=== PATIENT | female | born 1955 | race Caucasian/White ===

== ENCOUNTER → 2024-09-26 | Outpatient (CLI) | payer MEDICARE ==
[2024-09-26 18:29] LABS: Basophils # (A) 0.07 X 10*3/uL (0.00-0.10); Basophils % (A) 0.8 %; Eosinophils # (A) 0.09 X 10*3/uL (0.04-0.35); Eosinophils % (A) 1.1 %; HCT 44.5 % (37.2-46.3); HGB 14.5 g/dL (12.0-15.0); Lymphocytes % (A) 29.8 %; MCH 29.7 pg (27.0-32.0); MCHC 32.6 g/dL (32.0-37.0); MCV 91.2 FL (80.0-97.0); Mean Platelet Volume 9.3 FL (9.5-12.2); Monocytes # (A) 0.99 X 10*3/uL (0.20-1.00); Monocytes % (A) 11.8 %; NRBC Per 100 WBC 0 X 10*3/uL (0.00-0.01); Neutrophils # (A) 4.73 X 10*3/uL (1.80-7.70); Neutrophils % (A) 56.3 %; Platelet Count 357 X 10*3/uL (140-440); RBC 4.88 X 10*6/uL (4.10-5.20); RDW 13.4 % (11.5-14.5)
[2024-09-26 18:40] LABS: Calcium 11.3 mg/dL (8.7-10.3); Carbon Dioxide 23.1 mmol/L (21.6-31.8); Chloride 104 mmol/L (96-109); Glucose 94 mg/dL (70-110); Potassium 4.5 mmol/L (3.5-5.5); Sodium 136 mmol/L (135-145)
[2024-09-26 18:51] LABS: Appearance,Urine Cloudy (Clear); Bilirubin,Urine Negative (Negative); Blood,Urine Trace (Negative); Color,Urine Yellow (Yellow); Ketones,Urine Trace (Negative); Nitrite,Urine Negative (Negative); PH, Urine 5.5; Specific Gravity,Urine 1.022 (1.001-1.030); Urobilinogen,Urine 0.2 E.U./DL
[2024-09-26 19:20] LABS: Bacteria,Urine 2+ (None Seen); Calcium Oxalate Crystals,Urine Present (None Seen)
== END | disposition home or self-care (01) ==
LOC: LABPAT 14:18
PROVIDERS: ATTEND Urology
DX: Z01.812 Encounter for preprocedural laboratory examination (principal); N20.1 Calculus of ureter
CPT/HCPCS: 80048; 81001; 85025; 87086

== ENCOUNTER 2024-10-04 07:18 | Day surgery (SDC) | payer MEDICARE ==
--- NOTE | 2024-09-29 12:12 | P.HPIHPCON ---
History of Present Illness H&P Date: 09/29/24 Chief Complaint: Right ureteral stone This is a 69-year-old female with history of 8 mm right-sided UPJ stone. Option of right-sided ESWL versus ureteroscopy with holmium laser was discussed. She agreed to proceed with a right-sided ureteroscopy with holmium laser. She is aware of the risk which include but not limited to bleeding, infection, injury to the ureter Consent for Procedure: I have explained the operation/procedure to the patient, including the risks, benefits, side effects, alternative therapies (including not receiving the proposed treatment or service), the likelihood of the patient achieving his/her goals, and potential recuperation problems for the procedure/sedation/analgesia, as well as any blood products, if indicated. I also explained to the patient the risks, benefits and side effects of the alternatives, as well as the risks related to not receiving the proposed procedure, care, treatment, or services. Surgical - Exam - General no distress, no pain - Eyes normal ocular movement, no pale - ENT normal nares, normal mucosa - Respiratory normal expansion, normal respiratory effort - Abdomen Abdomen: soft, non tender Assessment and Plan Assessment: OR for right-sided ureteroscopy, millimeter lithotripsy, stone basketing and stent insertion
[~2024-10-04 07:18] MED LIST: HYDROmorphone 0.5 MG/0.5 ML SYRINGE IVP PRN; LACTATED RINGERS 1,000 ML IV SCH; LIDOCAINE 1% (10MG/ML) FOR IV START INTRADERMA PRN; MIDAZOLAM 2 MG/2 ML VIAL IV PRN; fentaNYL (PF) 50 MCG/ML 2 ML AMP IVP PRN
--- NOTE | 2024-10-04 07:42 | XR ---
EXAMINATION TYPE: XR KUB DATE OF EXAM: 10/04/2024 7:35 AM COMPARISON: CT 09/07/2024 CLINICAL INDICATION: Female, 69 years old with history of Ureteral Stone N20.1; PHH, pain TECHNIQUE: One radiographic view of the abdomen was obtained. FINDINGS: Moderate stool burden. Pelvic phleboliths. 1.2 cm calcification right paramedian mid to low er abdomen. Faint 6 mm calcification right mid abdomen. IMPRESSION: 1. Suspect persisting 1.2 cm right mid ureteral stone. 2. There may be faint underlying 6 mm right renal stone. [facility], Workstation: [facility], 10/04/2024 7:40 AM
[2024-10-04] MEDS: IV FLUID CONTINUATION 1,000 ML IV ONE (08:10)
[2024-10-04] MEDS: ONDANSETRON 4 MG/2 ML VIAL IVP ONE (08:14)
[2024-10-04] MEDS: DEXAMETHASONE SOD PHOSPHATE 4 MG/ML 1 ML VIAL IV ONE (08:14)
[2024-10-04] MEDS ORDERED: LIDOCAINE 1% INJ 10MG/ML (20 ML MDV) ONE (09:16)
[2024-10-04] MEDS ORDERED: fentaNYL (PF) 50 MCG/ML 2 ML AMP ONE (09:16)
[2024-10-04] MEDS ORDERED: PROPOFOL 10 MG/ML 20 ML VIAL IV ONE (09:16)
[2024-10-04] MEDS ORDERED: diphenhydrAMINE 50 MG/ML 1 ML VIAL ONE (09:16)
[2024-10-04 10:12] VITALS: TEMP 96.8
--- NOTE | 2024-10-04 11:01 | FL ---
EXAMINATION TYPE: FL guidance operating room DATE OF EXAM: 10/04/2024 FLUOROSCOPY Cysto for RT sided stone with Rahbar 4.1 sec fluoro time [id number] DAP 1 image saved LC [facility], , 10/04/2024 10:59 AM
--- NOTE | 2024-10-04 11:10 | P.OP ---
Date of Procedure: 10/04/24 Preoperative Diagnosis: Right ureteral stone Postoperative Diagnosis: Same Procedure(s) Performed: Cystoscopy, right ureteroscopy, hemilithotripsy, stone basketing, stent insertion Implants: 6 [place] by 24 cm stent in the right ureter Anesthesia: VERÓNICA Surgeon: Alejandro Ramirez Estimated Blood Loss (ml): 5 Pathology: other (Right ureteral stone) Condition: stable Disposition: PACU Indications for Procedure: This is a 69-year-old female with history of 8 mm right-sided UPJ stone. Option of right-sided ESWL versus ureteroscopy with holmium laser was discussed. She agreed to proceed with a right-sided ureteroscopy with holmium laser. She is aware of the risk which include but not limited to bleeding, infection, injury to the ureter Operative Findings: Right sided UPJ stone Description of Procedure: Patient brought the operating room, general anesthesia was induced. She was prepped, draped in sterile fashion placed in a dorsolithotomy position. Cystoscopy fitted through the 21 [place] sheath was inserted per urethra, cystoscopy was performed which showed no abnormality within the bladder. Attention was then carried to the right ureteral orifice which was intubated with a sensor wire. The wire was advanced under fluoroscopy into the kidney. Next an 1113 [place] access sheath was passed over the wire and into the proximal ureter. The flexible ureteroscope was inserted through the access sheath, at this point a stone was encountered at the UPJ. Using the holmium laser the stone was dusted, any sizable stone fragments were removed using the stone basket. Repeat renoscopy showed no sizable fragments or injury to the ureter or the kidney. On fluoroscopy there was no radiopaque density seen. Pullback ureteroscopy was performed showed no injury to the ureter or any ureteral stones, as ureteroscope was withdrawn a sensor wire was advanced through. Next a ureteral stent was passed over the wire, the proximal curl was visualized on fluoroscopy and the distal curl was visualized using the cystoscope. The bladder was emptied at the end of the case. Patient tolerated the procedure well was taken to recovery in stable condition
[2024-10-04 11:50] VITALS: BP 99/72; PULSE 74; RESP 17
== END 2024-10-04 12:07 | disposition home or self-care (01) ==
LOC: OR 07:18
PROVIDERS: ATTEND Urology
DX: N20.1 Calculus of ureter (principal)
CPT/HCPCS: 52356; 82365; 74018; C2625; C1769; J1200; J1100; J0690; J2405; J2003; J3010; J2704